=== PATIENT | male | born 1975 | race Caucasian/White ===

== ENCOUNTER 2017-09-18 13:25 | Emergency (ER) | payer BC, MEDICAID ==
[~2017-09-18 13:25] MED LIST: ASPI81TA23 PO; CLON.1 PO
[2017-09-18 13:27] VITALS: BP 194/109; PULSE 91; RESP 14; TEMP 98.5; O2SAT 97
--- NOTE | 2017-09-18 14:25 | RADRPT ---
EXAM DATE/TIME: 09/18/2017 14:12 [facility] COMPARISON: No previous studies available for comparison. INDICATIONS : Fever and cough MEDICAL HISTORY : None. SURGICAL HISTORY : None. ENCOUNTER: Initial ACUITY: 2 days PAIN SCORE: 0/10 LOCATION: chest FINDINGS: PA and lateral views of the chest demonstrate the lungs to be symmetrically aerated without evidence of mass, infiltrate or effusion. The cardiomediastinal contours are unremarkable. Osseous structure s are intact. CONCLUSION: No acute disease. Gabe Juarez Jr., MD on September 18, 2017 at 14:23 Board Certified Radiologist. This report was verified electronically.
--- NOTE | 2017-09-18 14:56 | PD ---
HPI Chief Complaint: Cold / Flu Symptoms Time Seen by Provider: 14:48 Travel History International Travel<30 days: No Contact w/Intl Traveler<30days: No Traveled to known affect area: No History of Present Illness HPI 42-year-old male presents to the emergency Department complaining of a cough, congestion, fever, chills and sore throat for 3 days. States that he has had a productive cough with green sputum associated with nausea occasionally. Coughing spells cause vomiting of mucus. States his sore throat has been present since the coughing started. Denies recent sick contacts. Denies recent antibiotic use. Denies shortness of breath or chest pain. Denies neck pain. PFSH Past Medical History Arthritis: Yes Cardiovascular Problems: Yes (HTN) Chest Pain: Yes Diminished Hearing: No Gastrointestinal Disorders: Yes Genitourinary: Yes Headaches: Yes Hypertension: Yes Kidney Stones: Yes Musculoskeletal: Yes Neurologic: Yes Psychiatric: No Immunizations Current: Yes Past Surgical History Genitourinary Surgery: Yes (KIDNEY STENTS AND REMOVAL) Other Surgery: Yes (SURGERY TO REMOVE KIDNEY STONES) Social History Alcohol Use: No Tobacco Use: Yes (1/2 PPD) Substance Use: No Allergies-Medications (Allergen,Severity, Reaction): Coded Allergies: acetaminophen (Unverified Adverse Reaction, Severe, STATES MAKES PAIN WORSE, 06/19/17) hydrocodone (Unverified Adverse Reaction, Severe, STATES MAKES PAIN WORSE , 06/19/17) Uncoded Allergies: ARTIFICIAL SWEETNERS (Adverse Reaction, Severe, 09/13/09) Reported Meds & Prescriptions Reported Meds & Active Scripts Active Azithromycin 250 Mg Tab 250 Mg PO DIRECTED Take 2 tabs (500 mg) on day 1 then 1 tab daily x 4 days. Ventolin Hfa 18 GM Inh (Albuterol Sulfate) 90 Mcg/Act Aer 2 Puff INH Q4-6H PRN Aspirin EC (Aspirin) 81 Mg Tabdr 81 Mg PO DAILY 30 Days Catapres (Clonidine) 0.1 Mg Tab 0.1 Mg PO Q8HR 30 Days Review of Systems Except as stated in HPI: all other systems reviewed are Neg Physical Exam Narrative GENERAL: Well-nourished, well-developed patient. SKIN: Focused skin assessment warm/dry. HEAD: Normocephalic. EYES: No scleral icterus. No injection or drainage. Tympanic membranes pearly toscano without bulging or erythema. NECK: Supple, trachea midline. No JVD or lymphadenopathy. CARDIOVASCULAR: Regular rate and rhythm without murmurs, gallops, or rubs. RESPIRATORY: Breath sounds equal bilaterally. No accessory muscle use. Bilateral upper and lower expiratory wheezing. GASTROINTESTINAL: Abdomen soft, non-tender, nondistended. MUSCULOSKELETAL: No cyanosis, or edema. BACK: Nontender without obvious deformity. No CVA tenderness. Data Data Last Documented VS Vital Signs Date Time Temp Pulse Resp B/P (MAP) Pulse Ox O2 Delivery O2 Flow Rate FiO2 09/18/17 14:38 Room Air 09/18/17 13:27 98.5 91 14 194/109 (137) 97 Orders Orders Group A Rapid Strep Screen (09/18/17 13:37) Influenzae A/B Antigen (09/18/17 13:37) Chest, Pa & Lat (09/18/17 ) MDM Medical Decision Making Medical Screen Exam Complete: Yes Emergency Medical Condition: Yes Differential Diagnosis Acute bronchitis versus ammonia versus upper respiratory infection Narrative Course 42-year-old male presents to the emergency Department complaining of a cough, congestion, fever, chills and sore throat for 3 days. States that he has had a productive cough with green sputum associated with nausea occasionally. Coughing spells cause vomiting of mucus. States his sore throat has been present since the coughing started. Patient states he is able swallow, eat, and drink normally. Denies recent sick contacts. Denies recent antibiotic use. Denies shortness of breath or chest pain. Denies neck pain. Vital signs stable Physical exam demonstrates extra wheezing otherwise normal. Explained to patient that this is likely a viral condition as he has only been sick for 3 days. This chest x-ray is also without acute process. Because of H&P we'll prescribe a watch and wait antibiotic and gave patient specific instructions on when to take this medication. Advised him to also use an inhaler. Diagnosis Primary Impression: Bronchitis Referrals: [facility] Additional Instructions: Take medication as prescribed. I recommend a watch and wait approach for antibiotics. You have been ill for only 3 days and this is likely a viral bronchitis. This infection will likely go away on its own. However, it causes of your wheezing prescribed a watch and wait antibiotic. Scripts Azithromycin (Azithromycin) 250 Mg Tab 250 MG PO DIRECTED for Infection, #6 TAB 0 Refills Take 2 tabs (500 mg) on day 1 then 1 tab daily x 4 days. Prov: Margarito Chacon MD 09/18/17 Albuterol 18 GM Inh (Ventolin Hfa 18 GM Inh) 90 Mcg/Act Aer 2 PUFF INH Q4-6H Y for SHORTNESS OF BREATH, #1 INHALER 0 Refills Prov: Margarito Chacon MD 09/18/17 Disposition: 01 DISCHARGE HOME Condition: Stable Shelly Crystal Sep 18, 2017 14:56
[2017-09-18] MEDS ORDERED: VENTAER INH (14:59)
[2017-09-18] MEDS ORDERED: AZIT250T3 PO (14:59)
[2017-09-18] MEDS ORDERED: BENZ100 PO (15:52)
== END 2017-09-18 16:06 | disposition home or self-care (01) ==
LOC: NEPK 13:25
DX: J40 Bronchitis, not specified as acute or chronic (principal); R11.0 Nausea; M19.90 Unspecified osteoarthritis, unspecified site; I10 Essential (primary) hypertension; F17.200 Nicotine dependence, unspecified, uncomplicated; Z79.82 Long term (current) use of aspirin; Z87.442 Personal history of urinary calculi; Z79.899 Other long term (current) drug therapy; Z88.6 Allergy status to analgesic agent
CPT/HCPCS: 71020; 87081; 87804; 87880; 99284

== ENCOUNTER 2017-11-21 17:48 | Emergency (ER) | payer BC, MEDICAID ==
[~2017-11-21] VITALS: Ht 193 cm; Wt 136.4 kg
[~2017-11-21 17:48] MED LIST changes: +AZIT250T3 PO; +BENZ100 PO; +VENTAER INH
[2017-11-21 17:51] VITALS: BP 208/120; PULSE 86; RESP 16; TEMP 98.2; O2SAT 99
--- NOTE | 2017-11-21 18:56 | RADRPT ---
EXAM DATE/TIME: 11/21/2017 18:37 [facility] COMPARISON: CT BRAIN W/O CONTRAST, October 26, 2016, 13:34. INDICATIONS : Headaches for one day. RADIATION DOSE: 69.17 CTDIvol (mGy) MEDICAL HISTORY : Hypertension. SURGICAL HISTORY : None. ENCOUNTER: Initial ACUITY: 1 day PAIN SCALE: 10/10 LOCATION: Bilateral cranial TECHNIQUE: Multiple contiguous axial images were obtained of the head. Using automated exposure control and adj ustment of the mA and/or kV according to patient size, radiation dose was kept as low as reasonably a chievable to obtain optimal diagnostic quality images. DICOM format image data is available electro nically for review and comparison. FINDINGS: CEREBRUM: The ventricles are normal for age. No evidence of midline shift, mass lesion, hemorrhage or acute in farction. No extra-axial fluid collections are seen. POSTERIOR FOSSA: The cerebellum and brainstem are intact. The 4th ventricle is midline. The cerebellopontine angle i s unremarkable. EXTRACRANIAL: The visualized portion of the orbits is intact. SKULL: The calvaria is intact. No evidence of skull fracture. CONCLUSION: No acute disease. Gabe Juarez Jr., MD on November 21, 2017 at 18:52 Board Certified Radiologist. This report was verified electronically.
[2017-11-21 20:15] VITALS: BP 185/93; PULSE 73; RESP 16; O2SAT 96
[2017-11-21] MEDS ORDERED: hydrALAZINE HCL 20 MG/ML VIAL IV PUSH ONE (20:15)
[2017-11-21] MEDS ORDERED: SODIUM CHLORIDE 0.9% FLUSH 10 ML FLUSH IV FLUSH PRN (20:15)
[2017-11-21] MEDS ORDERED: METOCLOPRAMIDE HCL 10 MG/2 ML VIAL IV PUSH ONE (20:15)
[2017-11-21] MEDS ORDERED: MORPHINE SULFATE 2 MG/ML INJ IV PUSH ONE (20:15)
--- NOTE | 2017-11-21 20:17 | PD ---
HPI Chief Complaint: Headache Time Seen by Provider: 20:09 Travel History International Travel<30 days: No Contact w/Intl Traveler<30days: No Traveled to known affect area: No History of Present Illness HPI 42-year-old male with history of hypertension here for evaluation of a headache. The patient reports that he woke up with a headache which has gradually worsened throughout the day today. He tells me it feels like his head is going to explode. Mild photophobia. He has had similar headaches in the past, onset is gradual. No fevers or chills. No neck pain or stiffness. No trauma. No paresthesias or motor deficits. He tried taking some of his brothers blood pressure medication today without improvement in symptoms. He has also been taking ibuprofen throughout the day today. States that he feels nauseous. No chest pain. CT head was ordered in triage and shows no acute intracranial abnormality. PFSH Past Medical History Arthritis: Yes Cardiovascular Problems: Yes (HTN) Chest Pain: Yes Diminished Hearing: No Gastrointestinal Disorders: Yes Genitourinary: Yes Headaches: Yes Hypertension: Yes Kidney Stones: Yes Musculoskeletal: Yes Neurologic: Yes Psychiatric: No Immunizations Current: Yes Past Surgical History Genitourinary Surgery: Yes (KIDNEY STENTS AND REMOVAL) Other Surgery: Yes (SURGERY TO REMOVE KIDNEY STONES) Social History Alcohol Use: No Tobacco Use: Yes (1/2 PPD) Substance Use: No Allergies-Medications (Allergen,Severity, Reaction): Coded Allergies: acetaminophen (Unverified Adverse Reaction, Severe, STATES MAKES PAIN WORSE, 06/19/17) hydrocodone (Unverified Adverse Reaction, Severe, STATES MAKES PAIN WORSE , 06/19/17) Uncoded Allergies: ARTIFICIAL SWEETNERS (Adverse Reaction, Severe, 09/13/09) Reported Meds & Prescriptions Reported Meds & Active Scripts Active Fioricet (Ktzsypwrqe-Dnhknybhahvym-Yevxiueq) 50-300-40 Mg Cap 1 Cap PO Q4H PRN Hydrochlorothiazide 25 Mg Tab 25 Mg PO BID Review of Systems Except as stated in HPI: all other systems reviewed are Neg Physical Exam Narrative GENERAL: Well-developed, well-nourished, comfortable, no apparent distress. SKIN: Focused skin assessment warm/dry. HEAD: Atraumatic. Normocephalic. EYES: Pupils equal, round, 3 mm, reactive to light. EOMI. No scleral icterus. No injection or drainage. ENT: Mucous membranes pink and moist. NECK: Trachea midline. No JVD. No nuchal rigidity. CARDIOVASCULAR: Regular rate and rhythm. RESPIRATORY: No accessory muscle use. Clear to auscultation. Breath sounds equal bilaterally. GASTROINTESTINAL: Abdomen soft, non-tender, nondistended. MUSCULOSKELETAL: No obvious deformities. No clubbing. No cyanosis. No edema. NEUROLOGICAL: Awake and alert. No obvious cranial nerve deficits. Motor grossly within normal limits. Normal speech. No focal deficits. PSYCHIATRIC: Appropriate mood and affect; insight and judgment normal. Data Data Last Documented VS Vital Signs Date Time Temp Pulse Resp B/P (MAP) Pulse Ox O2 Delivery O2 Flow Rate FiO2 11/21/17 22:25 63 16 161/93 (115) 97 Room Air 11/21/17 17:[address] Brain W/O Iv Contrast(Rout) (11/21/17 ) Complete Blood Count With Diff (11/21/17 20:12) Comprehensive Metabolic Panel (11/21/17 20:12) Prothrombin Time / Inr (Pt) (11/21/17 20:12) Act Partial Throm Time (Ptt) (11/21/17 20:12) Iv Access Insert/Monitor (11/21/17 20:12) Ecg Monitoring (11/21/17 20:12) Oximetry (11/21/17 20:12) Sodium Chloride 0.9% Flush (Ns Flush) (11/21/17 20:15) Influenzae A/B Antigen (11/21/17 20:12) Metoclopramide Inj (Reglan Inj) (11/21/17 20:15) Morphine Inj (Morphine Inj) (11/21/17 20:15) Hydralazine Inj (Apresoline Inj) (11/21/17 20:15) Ketorolac Inj (Toradol Inj) (11/21/17 21:45) Hydrochlorothiazide (Hydrodiuril) (11/21/17 21:45) Labs Laboratory Tests Test 11/21/17 20:25 White Blood Count 8.5 TH/MM3 Red Blood Count 5.43 MIL/MM3 Hemoglobin 15.4 GM/DL Hematocrit 46.2 % Mean Corpuscular Volume 85.0 FL Mean Corpuscular Hemoglobin 28.3 PG Mean Corpuscular Hemoglobin Concent 33.3 % Red Cell Distribution Width 13.4 % Platelet Count 199 TH/MM3 Mean Platelet Volume 7.9 FL Neutrophils (%) (Auto) 71.9 % Lymphocytes (%) (Auto) 20.7 % Monocytes (%) (Auto) 4.9 % Eosinophils (%) (Auto) 1.9 % Basophils (%) (Auto) 0.6 % Neutrophils # (Auto) 6.1 TH/MM3 Lymphocytes # (Auto) 1.8 TH/MM3 Monocytes # (Auto) 0.4 TH/MM3 Eosinophils # (Auto) 0.2 TH/MM3 Basophils # (Auto) 0.1 TH/MM3 CBC Comment DIFF FINAL Differential Comment Prothrombin Time 10.4 SEC Prothromb Time International Ratio 1.0 RATIO Activated Partial Thromboplast Time 27.5 SEC Blood Urea Nitrogen 10 MG/DL Creatinine 1.07 MG/DL Random Glucose 95 MG/DL Total Protein 7.6 GM/DL Albumin 4.1 GM/DL Calcium Level 8.9 MG/DL Alkaline Phosphatase 94 U/L Aspartate Amino Transf (AST/SGOT) 41 U/L Alanine Aminotransferase (ALT/SGPT) 102 U/L Total Bilirubin 0.3 MG/DL Sodium Level 140 MEQ/L Potassium Level 3.9 MEQ/L Chloride Level 108 MEQ/L Carbon Dioxide Level 26.4 MEQ/L Anion Gap 6 MEQ/L Estimat Glomerular Filtration Rate 77 ML/MIN MDM Medical Decision Making Medical Screen Exam Complete: Yes Emergency Medical Condition: Yes Differential Diagnosis Tension headache, cluster headache, migraine headache, SAH/meningitis/ encephalitis less likely, hypertensive urgency Narrative Course Initial vital signs show heart rate 86, blood pressure 208/120, pulse ox 99% on room air, tympanic temp of 98.2F. Patient was given IV hydralazine, IV morphine, and IV Reglan, and repeat vital signs show blood pressure 185/83 with a heart rate of 73. CBC is unremarkable. CMP is remarkable for AST 41, ALT 102, otherwise unremarkable. Patient may have some degree of fatty liver as he is overweight. He has been using a lot of ibuprofen, however denies using any Tylenol or acetaminophen. Influenza is negative. CT head shows no acute disease. After receiving IV hydralazine, IV morphine, and IV Reglan, the patient reports that his headache has improved, however is still about a 7 out of 10. I will give him IV Toradol. Patient overall appears comfortable. There is no nuchal rigidity on exam. Onset of the headache was gradual. I believe that SAH/ meningitis/encephalitis are less likely/unlikely. Patient was given IV Toradol and a dose of oral hydrochlorothiazide with improvement in blood pressure as well as significant improvement in his headache. Patient is feeling much better and would like to be discharged home. Plan is to discharge him home with a prescription for hydrochlorothiazide 25 mg which he will take once a day for the first week, then twice a day. I will also give him a prescription for Fioricet to see if this would help a headache as he has been getting them more frequently since quitting smoking cigarettes 2 weeks ago. He was advised to find a primary care physician with whom to follow- up with. He was informed on when to return to the emergency department. He verbalizes worsening and agreement with plan. Diagnosis Primary Impression: Headache Qualified Codes: R51 - Headache Additional Impression: Hypertension Qualified Codes: I10 - Essential (primary) hypertension Referrals: [facility] 3 days Primary Care Physician 3 days Additional Instructions: Follow-up with a primary care physician this week. Return to the emergency department for worsening symptoms or any other concerns. Scripts Kzeslyhlpj-Olkawryrekixu-Tkpngych (Fioricet) 50-300-40 Mg Cap 1 CAP PO Q4H Y for HEADACHE, #10 CAP 0 Refills Prov: Mannie Black MD 11/21/17 Hydrochlorothiazide (Hydrochlorothiazide) 25 Mg Tab 25 MG PO BID, #30 TAB 3 Refills Prov: Mannie Black MD 11/21/17 Disposition: 01 DISCHARGE HOME Condition: Stable Mannie Black MD Nov 21, 2017 20:17
[2017-11-21 20:50] LABS: AUTOMATED NEUTROPHIL # 6.1 TH/MM3 (1.8-7.7); BASOPHIL # 0.1 TH/MM3 (0-0.2); BASOPHIL % 0.6 % (0.0-2.0); EOSINOPHIL # 0.2 TH/MM3 (0-0.4); EOSINOPHIL % 1.9 % (0.0-4.0); HEMATOCRIT 46.2 % (39.0-51.0); HEMOGLOBIN 15.4 GM/DL (13.0-17.0); LYMPH % 20.7 % (9.0-44.0); LYMPHOCYTE # 1.8 TH/MM3 (1.0-4.8); MEAN CORPUSCULAR HEMOGLOBIN 28.3 PG (27.0-34.0); MEAN CORPUSCULAR HGB CONC 33.3 % (32.0-36.0); MEAN PLATELET VOLUME 7.9 FL (7.0-11.0); MONO % 4.9 % (0.0-8.0); MONOCYTE # 0.4 TH/MM3 (0-0.9); NEUT % 71.9 % (16.0-70.0); PLATELET COUNT 199 TH/MM3 (150-450); RED BLOOD COUNT 5.43 MIL/MM3 (4.50-5.90); RED CELL DISTRIBUTION WIDTH 13.4 % (11.6-17.2); WHITE BLOOD COUNT 8.5 TH/MM3 (4.0-11.0)
[2017-11-21 21:00] LABS: PROTHROMBIN TIME - PATIENT 10.4 SEC (9.8-11.6)
[2017-11-21 21:08] LABS: ALBUMIN 4.1 GM/DL (3.4-5.0); BICARBONATE 26.4 MEQ/L (21.0-32.0); BLOOD UREA NITROGEN 10 MG/DL (7-18); CALCIUM 8.9 MG/DL (8.5-10.1); CHLORIDE 108 MEQ/L (98-107); CREATININE 1.07 MG/DL (0.60-1.30); GLOMERULAR FILTRATION RATE 77 ML/MIN (>89); GLUCOSE,RANDOM 95 MG/DL (74-106); SODIUM (NA) 140 MEQ/L (136-145)
[2017-11-21 21:09] LABS: ALT (GPT) 102 U/L (12-78); AST (GOT) 41 U/L (15-37)
[2017-11-21 21:11] LABS: ALKALINE PHOSPHATASE 94 U/L (45-117); TOTAL BILIRUBIN ADULT 0.3 MG/DL (0.2-1.0); TOTAL PROTEIN 7.6 GM/DL (6.4-8.2)
[2017-11-21] MEDS ORDERED: HYDROCHLOROTHIAZIDE 25 MG TAB PO ONE (21:45)
[2017-11-21] MEDS ORDERED: KETOROLAC TROMETHAMINE 30 MG/ML (IVP) VIAL IV PUSH ONE (21:45)
[2017-11-21 21:56] VITALS: BP 175/95; PULSE 66; RESP 16; O2SAT 98
[2017-11-21 22:25] VITALS: BP 161/93; PULSE 63; RESP 16; O2SAT 97
[2017-11-21] MEDS ORDERED: BUTA1CAP PO (23:17)
[2017-11-21] MEDS ORDERED: HYDR25TA5 PO (23:17)
== END 2017-11-21 23:31 | disposition home or self-care (01) ==
LOC: NEPD 17:48
DX: R51 Headache (principal); I10 Essential (primary) hypertension; R11.0 Nausea; M19.90 Unspecified osteoarthritis, unspecified site; F17.200 Nicotine dependence, unspecified, uncomplicated; Z87.442 Personal history of urinary calculi; Z79.899 Other long term (current) drug therapy; Z88.6 Allergy status to analgesic agent; Z88.5 Allergy status to narcotic agent
CPT/HCPCS: 70450; 80053; 85025; 85610; 85730; 87804; 96374; 96375; 99285; J0360; J1885; J2270; J2765

== ENCOUNTER 2018-03-05 19:21 | Observation (INO) | payer BC ==
[~2018-03-05] VITALS: Ht 193 cm; Wt 137.0 kg
[~2018-03-05 19:21] MED LIST changes: -ASPI81TA23 PO; -AZIT250T3 PO; -BENZ100 PO; +BUTA1CAP PO; -CLON.1 PO; +HYDR25TA5 PO; -VENTAER INH
[2018-03-05 19:30] VITALS: BP_SYST 201; BP_SYST 202; BP_DIAS 89; BP_DIAS 99; PULSE 88; RESP 22; TEMP 98.9; O2SAT 99
[2018-03-05] MEDS ORDERED: SODIUM CHLORIDE 0.9% FLUSH 10 ML FLUSH IVF PRN (19:45)
[2018-03-05 19:59] LABS: AUTOMATED NEUTROPHIL # 5.7 TH/MM3 (1.8-7.7); BASOPHIL # 0.1 TH/MM3 (0-0.2); BASOPHIL % 0.7 % (0.0-2.0); EOSINOPHIL # 0.1 TH/MM3 (0-0.4); HEMATOCRIT 47.7 % (39.0-51.0); HEMOGLOBIN 16.5 GM/DL (13.0-17.0); LYMPH % 27.9 % (9.0-44.0); LYMPHOCYTE # 2.4 TH/MM3 (1.0-4.8); MEAN CELL VOLUME 82.9 FL (80.0-100.0); MEAN CORPUSCULAR HEMOGLOBIN 28.7 PG (27.0-34.0); MEAN CORPUSCULAR HGB CONC 34.6 % (32.0-36.0); MONO % 5.1 % (0.0-8.0); MONOCYTE # 0.4 TH/MM3 (0-0.9); NEUT % 65.3 % (16.0-70.0); PLATELET COUNT 230 TH/MM3 (150-450); RED BLOOD COUNT 5.76 MIL/MM3 (4.50-5.90); WHITE BLOOD COUNT 8.8 TH/MM3 (4.0-11.0)
[2018-03-05 20:09] LABS: INTERNATIONAL NORMALIZED RATIO 1.1 RATIO; PROTHROMBIN TIME - PATIENT 10.7 SEC (9.8-11.6)
[2018-03-05 20:11] LABS: ALBUMIN 4.8 GM/DL (3.4-5.0); AST (GOT) 43 U/L (15-37); BICARBONATE 24.9 MEQ/L (21.0-32.0); BLOOD UREA NITROGEN 12 MG/DL (7-18); CALCIUM 9.6 MG/DL (8.5-10.1); CHLORIDE 107 MEQ/L (98-107); CREATININE 1.33 MG/DL (0.60-1.30); GLOMERULAR FILTRATION RATE 59 ML/MIN (>89); GLUCOSE,RANDOM 100 MG/DL (74-106); MAGNESIUM 2.1 MG/DL (1.5-2.5); SODIUM (NA) 141 MEQ/L (136-145)
[2018-03-05 20:12] LABS: ALT (GPT) 110 U/L (12-78)
[2018-03-05 20:16] LABS: ALKALINE PHOSPHATASE 97 U/L (45-117); TOTAL BILIRUBIN ADULT 0.4 MG/DL (0.2-1.0); TOTAL PROTEIN 8.3 GM/DL (6.4-8.2); TROPONIN I LESS THAN 0.02 NG/ML (0.02-0.05)
--- NOTE | 2018-03-05 20:20 | RADRPT ---
EXAM DATE/TIME: 03/05/2018 20:02 [facility] COMPARISON: No previous studies available for comparison. INDICATIONS : Cephalgia. RADIATION DOSE: 56.35 CTDIvol (mGy) MEDICAL HISTORY : Hypertension. SURGICAL HISTORY : None. ENCOUNTER: Initial ACUITY: 1 day PAIN SCALE: 5/10 LOCATION: cranial TECHNIQUE: Multiple contiguous axial images were obtained of the head. Using automated exposure control and adj ustment of the mA and/or kV according to patient size, radiation dose was kept as low as reasonably a chievable to obtain optimal diagnostic quality images. DICOM format image data is available electro nically for review and comparison. FINDINGS: CEREBRUM: The ventricles are normal for age. No evidence of midline shift, mass lesion, hemorrhage or acute in farction. No extra-axial fluid collections are seen. POSTERIOR FOSSA: The cerebellum and brainstem are intact. The 4th ventricle is midline. The cerebellopontine angle i s unremarkable. EXTRACRANIAL: The visualized portion of the orbits is intact. SKULL: The calvaria is intact. No evidence of skull fracture. CONCLUSION: Normal examination for a patient of this age. Nj Herrera MD on March 05, 2018 at 20:17 Board Certified Radiologist. This report was verified electronically.
--- NOTE | 2018-03-05 20:28 | RADRPT ---
EXAM DATE/TIME: 03/05/2018 19:53 [facility] COMPARISON: No previous studies available for comparison. INDICATIONS : Chest pain. MEDICAL HISTORY : Hypertension. Renal calculi. SURGICAL HISTORY : Right wrist ORIF. ENCOUNTER: Initial ACUITY: 1 day PAIN SCORE: 5/10 LOCATION: Bilateral chest FINDINGS: A single view of the chest demonstrates the lungs to be symmetrically aerated without evidence of mas s, infiltrate or effusion. The cardiomediastinal contours are unremarkable. Osseous structures are intact. CONCLUSION: No acute disease. Nj Herrera MD on March 05, 2018 at 20:26 Board Certified Radiologist. This report was verified electronically.
--- NOTE | 2018-03-05 20:36 | PD ---
HPI Chief Complaint: Respiratory Symptoms Time Seen by Provider: 19:29 Travel History International Travel<30 days: No Contact w/Intl Traveler<30days: No Traveled to known affect area: No History of Present Illness HPI Patient presents to the emergency department complaining of chest pain and dyspnea. Also reporting a bilateral frontal headache. States that approximately one half hour ago he developed chest pressure that is described as being diffuse, 30 minutes in duration, intermittent, nonradiating, no alleviating or aggravating factors. States that he had similar pain in the past approximately 2 years ago but it was worse at that time. Additionally, he is unsure of the diagnosis at that time. He reports nausea and vomiting, dyspnea, stress at home and at work, right arm paresthesia. He denies fever, chills, lower extremity edema, recent travel, vision change, hematuria, abdominal pain, back pain. PFSH Past Medical History Arthritis: Yes Cardiovascular Problems: Yes (HTN) Chest Pain: Yes Diminished Hearing: No Gastrointestinal Disorders: Yes Genitourinary: Yes Headaches: Yes Hypertension: Yes Kidney Stones: Yes Musculoskeletal: Yes Neurologic: Yes Psychiatric: No Immunizations Current: Yes Past Surgical History Genitourinary Surgery: Yes (KIDNEY STENTS AND REMOVAL) Other Surgery: Yes (SURGERY TO REMOVE KIDNEY STONES) Social History Alcohol Use: No Tobacco Use: Yes (1PPD) Substance Use: No Allergies-Medications (Allergen,Severity, Reaction): Coded Allergies: acetaminophen (Unverified Adverse Reaction, Severe, STATES MAKES PAIN WORSE, 06/19/17) hydrocodone (Unverified Adverse Reaction, Severe, STATES MAKES PAIN WORSE , 06/19/17) Uncoded Allergies: ARTIFICIAL SWEETNERS (Adverse Reaction, Severe, 09/13/09) Reported Meds & Prescriptions Reported Meds & Active Scripts Active Hydrochlorothiazide 25 Mg Tab 25 Mg PO BID Review of Systems Except as stated in HPI: all other systems reviewed are Neg Physical Exam Narrative GENERAL: Acute distress SKIN: Focused skin assessment warm/dry. HEAD: Atraumatic. Normocephalic. Extraocular muscles intact bilaterally EYES: Pupils equal and round. No scleral icterus. No injection or drainage. ENT: No nasal bleeding or discharge. Mucous membranes pink and moist. NECK: Trachea midline. No JVD. CARDIOVASCULAR: Regular rate and rhythm. No murmur appreciated. RESPIRATORY: No accessory muscle use. Clear to auscultation. Breath sounds equal bilaterally. GASTROINTESTINAL: Abdomen soft, non-tender, nondistended. Hepatic and splenic margins not palpable. MUSCULOSKELETAL: No obvious deformities. No clubbing. No cyanosis. No edema. NEUROLOGICAL: Awake and alert. No obvious cranial nerve deficits. Motor grossly within normal limits. Normal speech. PSYCHIATRIC: Appropriate mood and affect; insight and judgment normal. Data Data Last Documented VS Vital Signs Date Time Temp Pulse Resp B/P (MAP) Pulse Ox O2 Delivery O2 Flow Rate FiO2 03/05/18 21:16 78 16 158/76 (103) 98 Room Air 03/05/18 19:30 98.9 Orders Orders Ckmb (Isoenzyme) Profile (03/05/18 19:40) Complete Blood Count With Diff (03/05/18 19:40) Comprehensive Metabolic Panel (03/05/18 19:40) Magnesium (Mg) (03/05/18 19:40) Prothrombin Time / Inr (Pt) (03/05/18 19:40) Troponin I (03/05/18 19:40) Chest, Single Ap (03/05/18 19:40) Ecg Monitoring (03/05/18 19:40) Bilateral Bp Monitoring (03/05/18 19:40) Iv Access Insert/Monitor (03/05/18 19:40) Oximetry (03/05/18 19:40) Ct Brain W/O Iv Contrast(Rout) (03/05/18 19:40) Electrocardiogram (03/05/18 19:40) B-Type Natriuretic Peptide (03/05/18 19:40) Act Partial Throm Time (Ptt) (03/05/18 19:40) Sodium Chloride 0.9% Flush (Ns Flush) (03/05/18 19:45) Urinalysis - C+S If Indicated (03/05/18 19:40) CKMB (03/05/18 19:35) CKMB% (03/05/18 19:35) Aspirin (Aspirin) (03/05/18 21:00) Labetalol Inj (Trandate Inj) (03/05/18 21:00) Admit Order (Ed Use Only) (03/05/18 21:28) Labs Laboratory Tests Test 03/05/18 19:35 White Blood Count 8.8 TH/MM3 Red Blood Count 5.76 MIL/MM3 Hemoglobin 16.5 GM/DL Hematocrit 47.7 % Mean Corpuscular Volume 82.9 FL Mean Corpuscular Hemoglobin 28.7 PG Mean Corpuscular Hemoglobin Concent 34.6 % Red Cell Distribution Width 14.0 % Platelet Count 230 TH/MM3 Mean Platelet Volume 8.0 FL Neutrophils (%) (Auto) 65.3 % Lymphocytes (%) (Auto) 27.9 % Monocytes (%) (Auto) 5.1 % Eosinophils (%) (Auto) 1.0 % Basophils (%) (Auto) 0.7 % Neutrophils # (Auto) 5.7 TH/MM3 Lymphocytes # (Auto) 2.4 TH/MM3 Monocytes # (Auto) 0.4 TH/MM3 Eosinophils # (Auto) 0.1 TH/MM3 Basophils # (Auto) 0.1 TH/MM3 CBC Comment DIFF FINAL Differential Comment Prothrombin Time 10.7 SEC Prothromb Time International Ratio 1.1 RATIO Activated Partial Thromboplast Time 28.0 SEC Blood Urea Nitrogen 12 MG/DL Creatinine 1.33 MG/DL Random Glucose 100 MG/DL Total Protein 8.3 GM/DL Albumin 4.8 GM/DL Calcium Level 9.6 MG/DL Magnesium Level 2.1 MG/DL Alkaline Phosphatase 97 U/L Aspartate Amino Transf (AST/SGOT) 43 U/L Alanine Aminotransferase (ALT/SGPT) 110 U/L Total Bilirubin 0.4 MG/DL Sodium Level 141 MEQ/L Potassium Level 3.4 MEQ/L Chloride Level 107 MEQ/L Carbon Dioxide Level 24.9 MEQ/L Anion Gap 9 MEQ/L Estimat Glomerular Filtration Rate 59 ML/MIN Total Creatine Kinase 513 U/L Creatine Kinase MB 3.9 NG/ML Creatine Kinase MB % 0.8 % Troponin I LESS THAN 0.02 NG/ML B-Type Natriuretic Peptide 6 PG/ML MDM Medical Decision Making Medical Screen Exam Complete: Yes Emergency Medical Condition: Yes Interpretation(s) ECG: Sinus rhythm, rate 89, Q in III, TWI in V1 and III Last Impressions Head CT 03/05/181939 Signed Impressions: Service Date/Time: Monday, March 05, 2018 20:02 - CONCLUSION: Normal examination for a patient of this age. Nj Herrera MD Chest X-Ray 03/05/181939 Signed Impressions: Service Date/Time: Monday, March 05, 2018 19:53 - CONCLUSION: No acute disease. Nj Herrera MD Differential Diagnosis Musculoskeletal chest pain, ACS, hypertensive emergency/urgency, CVA Narrative Course Patient presented to the emergency department complaining of headache, chest pain, shortness of breath, and hypertensive. BP upon presentation was in the low 200s systolic. Head CT, ECG, and chest x-ray were negative for any acute changes. Patient's urinalysis positive for protein, chemistry showed increased AST and ALT, slight decrease in potassium increased CK and MB. Patient was given aspirin 325 mg p.o. in the ER as well as labetalol 10 mg IV. Blood pressure decreased to 158/76. The patient was admitted to the hospitalist for chest pain observation.obs. Diagnosis Primary Impression: Hypertension Qualified Codes: I10 - Essential (primary) hypertension Additional Impressions: Chest pain Qualified Codes: R07.9 - Chest pain, unspecified Acute kidney injury Admitting Information Admitting Physician Requests: Observation Condition: Stable Marly Ortiz MD March 05, 2018 20:35
[2018-03-05 20:45] VITALS: BP 184/104; PULSE 75; RESP 16; O2SAT 97
[2018-03-05 21:00] VITALS: BP 186/106; PULSE 70; RESP 16; O2SAT 100
[2018-03-05] MEDS ORDERED: LABETALOL HCL 100 MG/20 ML VIAL IV PUSH ONE (21:00)
[2018-03-05] MEDS ORDERED: ASPIRIN 325 MG TAB PO ONE (21:00)
[2018-03-05 21:16] VITALS: BP 158/76; PULSE 78; RESP 16; O2SAT 98
[2018-03-05] MEDS ORDERED: MAGNESIUM HYDROXIDE SUSP 30 ML CUP PO PRN (22:15)
[2018-03-05] MEDS ORDERED: SODIUM CHLORIDE 0.9% FLUSH 10 ML FLUSH IV FLUSH PRN (22:15)
[2018-03-05] MEDS ORDERED: NALOXONE HCL 0.4 MG/ML AMP IV PUSH PRN (22:15)
[2018-03-05] MEDS ORDERED: ACETAMINOPHEN 325 MG TAB PO PRN (22:15)
[2018-03-05] MEDS ORDERED: SENNOSIDES 8.6 MG TAB PO PRN (22:15)
[2018-03-05] MEDS ORDERED: BISACODYL 10 MG SUPP RECTAL PRN (22:15)
[2018-03-05] MEDS ORDERED: POTASSIUM CHLORIDE 20 MEQ CONTROLLED RELEASE TAB PO ONE (22:15)
[2018-03-05] MEDS ORDERED: ONDANSETRON HCL 4 MG/2 ML VIAL IVP PRN (22:15)
[2018-03-05] MEDS ORDERED: LACTULOSE SYRUP 20 GM/30 ML CUP PO PRN (22:15)
--- NOTE | 2018-03-05 22:17 | HHI.HP ---
[facility] Lauri Palomares M.D. Admission Diagnosis htn URGENCY, CHEST PAIN, RENAL FAILURE Diagnoses: Travel History International Travel<30 Days: No Contact w/Intl Traveler <30 Da: No Traveled to Known Affected Are: No History of Present Illness 43-year-old male with a past medical history significant for hypertension presents to the emergency department for evaluation of chest pain/pressure that began at approximately 6 PM. The patient reports he was driving home from work when he started to feel pain and pressure in his chest with accompanying back pain and shortness of breath. He denies any diaphoretic episodes. He states his pain is now significantly improved although that is starting to return. No fevers/chills. No abdominal pain. No nausea/vomiting/diarrhea. Positive fatigue/weakness. No lateralizing signs/symptoms. Review of Systems Except as stated in HPI: all other systems reviewed are Neg Past Family Social History Past Medical History Hypertension Past Surgical History Ureter stent placement Reported Medications Reported Meds & Active Scripts Active Hydrochlorothiazide 25 Mg Tab 25 Mg PO BID Allergies: Coded Allergies: acetaminophen (Unverified Adverse Reaction, Severe, STATES MAKES PAIN WORSE, 06/19/17) hydrocodone (Unverified Adverse Reaction, Severe, STATES MAKES PAIN WORSE , 06/19/17) Uncoded Allergies: ARTIFICIAL SWEETNERS (Adverse Reaction, Severe, 09/13/09) Family History Paternal grandfather with coronary artery disease Social History Smokes approximately 1 pack per day. Denies alcohol and illicit drugs. Physical Exam Vital Signs Vital Signs Date Time Temp Pulse Resp B/P (MAP) Pulse Ox O2 Delivery O2 Flow Rate FiO2 03/05/18 21:16 78 16 158/76 (103) 98 Room Air 03/05/18 21:00 70 16 186/106 (132) 100 Room Air 03/05/18 20:45 75 16 184/104 (130) 97 Room Air 03/05/18 19:30 98.9 88 22 202/89 (126) 99 201/99 (133) Physical Exam GENERAL: male sitting up in bed SKIN: No rashes, ecchymoses or lesions. Cool and dry. HEAD: Atraumatic. Normocephalic. No temporal or scalp tenderness. EYES: Pupils equal round and reactive. Extraocular motions intact. No scleral icterus. No injection or drainage. ENT: Nose without bleeding, purulent drainage or septal hematoma. Throat without erythema, tonsillar hypertrophy or exudate. Uvula midline. Airway patent. NECK: Trachea midline. No JVD or lymphadenopathy. Supple, nontender, no meningeal signs. CARDIOVASCULAR: Regular rate and rhythm without murmurs, gallops, or rubs. RESPIRATORY: Clear to auscultation. Breath sounds equal bilaterally. No wheezes , rales, or rhonchi. GASTROINTESTINAL: Abdomen soft, non-tender, nondistended. No hepato-splenomegaly , or palpable masses. No guarding. MUSCULOSKELETAL: Extremities without clubbing, cyanosis, or edema. No joint tenderness, effusion, or edema noted. No calf tenderness. NEUROLOGICAL: Awake and alert. Cranial nerves II through XII intact. Motor and sensory grossly within normal limits. Normal speech. Laboratory Laboratory Tests Test 03/05/18 19:35 03/05/18 22:07 White Blood Count 8.8 Red Blood Count 5.76 Hemoglobin 16.5 Hematocrit 47.7 Mean Corpuscular Volume 82.9 Mean Corpuscular Hemoglobin 28.7 Mean Corpuscular Hemoglobin Concent 34.6 Red Cell Distribution Width 14.0 Platelet Count 230 Mean Platelet Volume 8.0 Neutrophils (%) (Auto) 65.3 Lymphocytes (%) (Auto) 27.9 Monocytes (%) (Auto) 5.1 Eosinophils (%) (Auto) 1.0 Basophils (%) (Auto) 0.7 Neutrophils # (Auto) 5.7 Lymphocytes # (Auto) 2.4 Monocytes # (Auto) 0.4 Eosinophils # (Auto) 0.1 Basophils # (Auto) 0.1 CBC Comment DIFF FINAL Differential Comment Prothrombin Time 10.7 Prothromb Time International Ratio 1.1 Activated Partial Thromboplast Time 28.0 Blood Urea Nitrogen 12 Creatinine 1.33 Random Glucose 100 Total Protein 8.3 Albumin 4.8 Calcium Level 9.6 Magnesium Level 2.1 Alkaline Phosphatase 97 Aspartate Amino Transf (AST/SGOT) 43 Alanine Aminotransferase (ALT/SGPT) 110 Total Bilirubin 0.4 Sodium Level 141 Potassium Level 3.4 Chloride Level 107 Carbon Dioxide Level 24.9 Anion Gap 9 Estimat Glomerular Filtration Rate 59 Total Creatine Kinase 513 Creatine Kinase MB 3.9 Creatine Kinase MB % 0.8 Troponin I LESS THAN 0.02 B-Type Natriuretic Peptide 6 Result Diagram: 03/05/18193403/05/181934 Juan Antonio VTE Risk Assessment Juan Antonio VTE Risk Assessment: No/Low Risk (score <= 1) Juan Antonio Risk Assessment Model Point Value = 1 Point Value = 2 Point Value = 3 Point Value = 5 Age 41-60 Minor surgery BMI > 25 kg/m2 Swollen legs Varicose veins or History of unexplained or recurrent spontaneous Oral contraceptives or hormone replacement Sepsis (< 1 month) Serious lung disease, including pneumonia (< 1 month) Abnormal pulmonary function Acute myocardial infarction Congestive heart failure (< 1 month) History of inflammatory bowel disease Medical patient at bed rest Age 61-74 Arthroscopic surgery Major open surgery (> 45 min) Laparoscopic surgery (> 45 min) Malignancy Confined to bed (> 72 hours) Immobilizing plaster cast Central venous access Age >= 75 History of VTE Family history of VTE Factor V Leiden Prothrombin 10240I Lupus anticoagulant Anticardiolipin antibodies Elevated serum homocysteine Heparin-induced thrombocytopenia Other congenital or acquired thrombophilia Stroke (< 1 month) Elective arthroplasty Hip, pelvis, or leg fracture Acute spinal cord injury (< 1 month) Prophylaxis Regimen Total Risk Factor Score Risk Level Prophylaxis Regimen 0-1 Low Early ambulation 2 Moderate Order ONE of the following: *Sequential Compression Device (SCD) *Heparin 5000 units SQ BID 3-4 Higher Order ONE of the following medications: *Heparin 5000 units SQ TID *Enoxaparin/Lovenox 40 mg SQ daily (WT < 150 kg, CrCl > 30 mL/min) *Enoxaparin/Lovenox 30 mg SQ daily (WT < 150 kg, CrCl > 10-29 mL/min) *Enoxaparin/Lovenox 30 mg SQ BID (WT < 150 kg, CrCl > 30 mL/min) AND/OR *Sequential Compression Device (SCD) 5 or more Highest Order ONE of the following medications: *Heparin 5000 units SQ TID (Preferred with Epidurals) *Enoxaparin/Lovenox 40 mg SQ daily (WT < 150 kg, CrCl > 30 mL/min) *Enoxaparin/Lovenox 30 mg SQ daily (WT < 150 kg, CrCl > 10-29 mL/min) *Enoxaparin/Lovenox 30 mg SQ BID (WT < 150 kg, CrCl > 30 mL/min) AND *Sequential Compression Device (SCD) Assessment and Plan Assessment and Plan Assessment/plan: 1. Chest pain/pressure EKG shows normal sinus rhythm without ST segment elevations or depressions, personally reviewed Initial troponin negative ACS rule out pending; serial troponins/EKGs 2. Acute kidney injury BUN/creatinine 12/1.33 IV fluid hydration Monitor renal function 3. Hypertensive urgency Resolved with IV labetalol Continue home hydrochlorothiazide Monitor blood pressure closely as patient may require additional antihypertensive medications 4. Hypokalemia Status post p.o. repletion Monitor BMP FEN N.p.o. Electrolytes: As above Normal saline at 1 25 cc/hour Heparin Tasia Oleary MD March 05, 2018 22:17
[2018-03-05 22:20] LABS: BILIRUBIN, URINE NEG (NEG); BLOOD, URINE NEG (NEG); GLUCOSE,URINE NEG (NEG); KETONE, URINE NEG (NEG); MUCUS URINE FEW /lpf (OCC); NITRITE,URINE NEG (NEG); URINE COLOR YELLOW (YELLW/STRAW); URINE LEUKOCYTE ESTERASE NEG (NEG)
[2018-03-05] MEDS: SODIUM CHLOR 0.9% 1000 ML INJ 1,000 ML IV SCH (22:47)
[2018-03-05] MEDS: MORPHINE SULFATE 4 MG/ML INJ IV PUSH PRN (22:48)
[2018-03-05 23:12] VITALS: BP 194/109; PULSE 71; RESP 16; O2SAT 98
[2018-03-06] MEDS ORDERED: cloNIDine HCL 0.1 MG TAB PO PRN
[2018-03-06 01:27] VITALS: BP 146/97
[2018-03-06 01:35] LABS: AUTOMATED NEUTROPHIL # 4.2 TH/MM3 (1.8-7.7); BASOPHIL # 0.1 TH/MM3 (0-0.2); BASOPHIL % 0.7 % (0.0-2.0); EOSINOPHIL # 0.2 TH/MM3 (0-0.4); EOSINOPHIL % 2.2 % (0.0-4.0); HEMATOCRIT 44.7 % (39.0-51.0); HEMOGLOBIN 15.4 GM/DL (13.0-17.0); LYMPH % 38.1 % (9.0-44.0); LYMPHOCYTE # 2.9 TH/MM3 (1.0-4.8); MEAN CELL VOLUME 83.3 FL (80.0-100.0); MEAN CORPUSCULAR HEMOGLOBIN 28.7 PG (27.0-34.0); MEAN CORPUSCULAR HGB CONC 34.4 % (32.0-36.0); MONO % 4.8 % (0.0-8.0); MONOCYTE # 0.4 TH/MM3 (0-0.9); NEUT % 54.2 % (16.0-70.0); PLATELET COUNT 207 TH/MM3 (150-450); RED BLOOD COUNT 5.37 MIL/MM3 (4.50-5.90); RED CELL DISTRIBUTION WIDTH 13.9 % (11.6-17.2); WHITE BLOOD COUNT 7.7 TH/MM3 (4.0-11.0)
[2018-03-06 02:02] LABS: BICARBONATE 26.8 MEQ/L (21.0-32.0); BLOOD UREA NITROGEN 12 MG/DL (7-18); CALCIUM 8.8 MG/DL (8.5-10.1); CHLORIDE 108 MEQ/L (98-107); GLOMERULAR FILTRATION RATE 67 ML/MIN (>89); GLUCOSE,RANDOM 133 MG/DL (74-106); SODIUM (NA) 142 MEQ/L (136-145)
[2018-03-06 02:05] LABS: TROPONIN I LESS THAN 0.02 NG/ML (0.02-0.05)
[2018-03-06] MEDS: MORPHINE SULFATE 4 MG/ML INJ IV PUSH PRN ×2 (02:34→08:12)
[2018-03-06] MEDS: SODIUM CHLOR 0.9% 1000 ML INJ 1,000 ML IV SCH (06:08)
[2018-03-06 06:41] LABS: TROPONIN I LESS THAN 0.02 NG/ML (0.02-0.05)
[2018-03-06 07:10] VITALS: BP 160/85; PULSE 72; RESP 20; O2SAT 98
[2018-03-06 07:36] VITALS: PULSE 61
--- NOTE | 2018-03-06 08:56 | EKG ---
Date Performed: 03/05/2018 Time Performed: 19:28:40 PTAGE: 43 years EKG: Sinus rhythm WITH SINUS ARRHYTHMIA NORMAL ECG PREVIOUS TRACING 10/26/2016 Since the previous tracing, no significant change noted DOCTOR: Adolph Richmond Interpretating Date/Time 03/06/2018 08:51:11
[2018-03-06] MEDS ORDERED: SODIUM CHLORIDE 0.9% FLUSH 10 ML FLUSH IV FLUSH SCH (09:00)
[2018-03-06] MEDS ORDERED: CYCLOBENZAPRINE HCL 10 MG TAB PO ONE (09:00)
[2018-03-06] MEDS ORDERED: DOCUSATE SODIUM 50 MG/SENNA 8.6 MG TAB PO SCH (09:00)
[2018-03-06] MEDS ORDERED: NIFEdipine 60 MG SUSTAINED RELEASE TAB PO SCH (09:00)
[2018-03-06] MEDS ORDERED: HYDROCHLOROTHIAZIDE 25 MG TAB PO SCH (09:00)
--- NOTE | 2018-03-06 10:15 | HHI.PR ---
Subjective Remarks Follow-up for hypertensive urgency, headache, chest pressure. Patient is currently doing well. He still has some headache. He states that he is under a lot of pressure at home and due to work. He uses NSAIDs quite a bit - probably every other day. Objective Vitals Vital Signs Date Time Temp Pulse Resp B/P (MAP) Pulse Ox O2 Delivery O2 Flow Rate FiO2 03/06/18 07:36 61 03/06/18 01:27 146/97 (113) 03/05/18 23:12 71 16 194/109 (137) 98 03/05/18 21:16 78 16 158/76 (103) 98 Room Air 03/05/18 21:00 70 16 186/106 (132) 100 Room Air 03/05/18 20:45 75 16 184/104 (130) 97 Room Air 03/05/18 19:30 98.9 88 22 202/89 (126) 99 201/99 (133) Result Diagram: 03/06/18 0124 03/06/18 0124 Imaging Last Impressions Head CT 03/05/181939 Signed Impressions: Service Date/Time: Monday, March 05, 2018 20:02 - CONCLUSION: Normal examination for a patient of this age. Nj Herrera MD Chest X-Ray 03/05/181939 Signed Impressions: Service Date/Time: Monday, March 05, 2018 19:53 - CONCLUSION: No acute disease. Nj Herrera MD Objective Remarks GENERAL: Alert, oriented x 3, NAD. SKIN: Warm and dry. HEAD: Normocephalic. EYES: No scleral icterus. No injection or drainage. NECK: Supple, trachea midline. No JVD or lymphadenopathy. CARDIOVASCULAR: Regular rate and rhythm without murmurs, gallops, or rubs. RESPIRATORY: Breath sounds equal bilaterally. No accessory muscle use. GASTROINTESTINAL: Abdomen soft, non-tender, nondistended. MUSCULOSKELETAL: No cyanosis, or edema. BACK: Nontender without obvious deformity. No CVA tenderness. Procedures None. A/P Problem List: (1) Chest pain ICD Code: R07.9 - Chest pain, unspecified Status: Acute (2) Acute kidney injury ICD Code: N17.9 - Acute kidney failure, unspecified Status: Acute (3) Accelerated hypertension ICD Code: I10 - Essential (primary) hypertension Status: Acute Assessment and Plan Mr. Duckworth is a pleasant 43-year-old male with a history of hypertension who was admitted to the hospital due to chest pressure that started on 03/05/2018 at around 6 PM. He also had headache. Upon admission his blood pressure was very high, in the 200 range systolic. Chest pain Accelerated hypertension -Chest pain is possibly due to accelerated hypertension. -Troponins 3 negative. -Patient feels somewhat weak. Thus, will obtain a Lexiscan stress test. -DC hydrochlorothiazide and start nifedipine 60 mg daily. -If needed, will add YAMILET inhibitor or ARB. Headache -Advised patient not to use opioids for headache. Patient also does not want to take opioids. -Tylenol for headache. Will also use muscle relaxer Flexeril Mild acute kidney injury -creatinine 1.33 on admission. Improved to 1.20. This is possibly related to NSAIDs use. -Again advised patient not to use NSAIDs on a regular basis. Full code. Ambulation. Problem Qualifiers (1) Chest pain: Qualified Codes: R07.9 - Chest pain, unspecified Capri Marin DO March 06, 2018 10:15 am
[2018-03-06] MEDS ORDERED: REGADENOSON INJ 0.4 MG/5 ML SYR ONE (10:28)
--- NOTE | 2018-03-06 10:30 | EKG ---
Date Performed: 03/06/2018 Time Performed: 02:35:11 PTAGE: 43 years EKG: Sinus rhythm NONSPECIFIC T-WAVE ABNORMALITY BORDERLINE ECG PREVIOUS TRACING : 03/05/2018 19.28 Flattened T-waves compared to the prior tracing. DOCTOR: Adolph Richmond Interpretating Date/Time 03/06/2018 10:29:33
--- NOTE | 2018-03-06 11:52 | RADRPT ---
EXAM DATE/TIME: 03/06/2018 10:11 [place] COMPARISON: No previous studies available for comparison. INDICATIONS : Mid chest pain with shortness of breath for one day. Angina. DOSE: 35.0 mCi Tc99m Myoview at stress. 10.2 mCi Tc99m Myoview at rest. 0.4 mg Lexiscan STRESS SYMPTOMS: EJECTION FRACTION: 53% MEDICAL HISTORY : Hypertension. SURGICAL HISTORY : Ureter stent placement. ENCOUNTER: Initial ACUITY: 1 day PAIN SCALE: 5/10 LOCATION: Midsternal chest TECHNIQUE: The patient underwent pharmacologic stress with infusion of prescribed dose. Continuous ECG tracing was monitored during stress. Gated SPECT imaging was performed after stress and conventional SPECT i maging was performed at rest. The examination was performed on a SPECT/CT scanner, both attenuation and non-corrected datasets were reviewed. FINDINGS: DISTRIBUTION: The maximum perfused segment at stress is in the inferior septal wall. PERFUSION STUDY: The pattern of perfusion at stress is within normal limits. GATED STUDY: There is intact wall motion and thickening without hypokinetic or dyskinetic segments. CONCLUSION: Unremarkable myocardial perfusion scan. RISK CATEGORY: Low Dennis Moreno MD on March 06, 2018 at 11:49 Board Certified Radiologist. This report was verified electronically.
[2018-03-06] MEDS ORDERED: NIFE60TA8 PO (12:46)
[2018-03-06] MEDS ORDERED: CYCL10TA PO (12:46)
[2018-03-06] MEDS ORDERED: CYCLOBENZAPRINE HCL 10 MG TAB PO SCH (14:00)
--- NOTE | 2018-03-07 15:44 | EKG ---
Date Performed: 03/06/2018 Time Performed: 07:22:53 PTAGE: 43 years EKG: Sinus rhythm PROLONGED QT INTERVAL ABNORMAL ECG PREVIOUS TRACING : 03/06/2018 02.35 Since the prior tracing, the patient has developed QT prolo ngation, but no other significant serial change. DOCTOR: Katie Marie Interpretating Date/Time 03/07/2018 15:42:43
== END 2018-03-06 14:43 | disposition home or self-care (01) ==
LOC: NEPC 19:21 → NEDA 21:30 → NEPHCDU 22:37
PROVIDERS: ADMIT Hospitalist; ATTEND Hospitalist
DX: R07.89 Other chest pain (principal); N17.9 Acute kidney failure, unspecified; I16.0 Hypertensive urgency; E87.6 Hypokalemia; I10 Essential (primary) hypertension; R51 Headache; R53.1 Weakness; I45.81 Long QT syndrome; I49.9 Cardiac arrhythmia, unspecified; R11.2 Nausea with vomiting, unspecified; R20.2 Paresthesia of skin; R06.00 Dyspnea, unspecified; M19.90 Unspecified osteoarthritis, unspecified site; F17.200 Nicotine dependence, unspecified, uncomplicated; Z79.899 Other long term (current) drug therapy
CPT/HCPCS: 70450; 71045; 78452; 80048; 80053; 81001; 82550; 82552; 83735; 83880; 84484; 85025; 85610; 85730; 93005; 93017; 96361; 96374; 96375; 96376; 99285; A9502; G0378; J2270; J2405; J2785; J7030